=== PATIENT | female | born 1955 | race Native Hawaiian/Other Pacific Islander ===

== ENCOUNTER 2021-09-19 12:28 | Inpatient (IN) | payer OTHER ==
[~2021-09-19] VITALS: Ht 152.4 cm; Wt 68.5 kg
[2021-09-19] VITALS (8 sets, daily range): BP systolic 128–160; BP diastolic 55–78
[2021-09-19] MEDS ORDERED: SITA100T PO (12:42)
[2021-09-19] MEDS ORDERED: ASPI81TA31 PO (12:42)
[2021-09-19] MEDS ORDERED: NITR0.4T48 SL (12:42)
[2021-09-19] MEDS ORDERED: METO50TA16 PO (12:42)
[2021-09-19] MEDS ORDERED: PRAV20TA4 PO (12:42)
[2021-09-19] MEDS ORDERED: PANT40TA49 PO (12:42)
[2021-09-19] MEDS ORDERED: CHOL-9 PO (12:42)
[2021-09-19] MEDS ORDERED: LACT1CAP57 PO (12:42)
[2021-09-19] MEDS ORDERED: INSU100V39 SQ (12:42)
[2021-09-19] MEDS ORDERED: DILTIAZEM HCL 25 MG IV IV ONE ×2 (12:45→13:30)
[2021-09-19 12:46] LABS: HEMATOCRIT 30.3 % (31.2-41.9); MEAN CORPUSCULAR HEMOGLOBIN 28.3 uug (24.7-32.8); MEAN CORPUSCULAR VOLUME 87.8 fL (75.5-95.3); PLATELET COUNT (AUTO) 228 K/uL (179-408)
[2021-09-19] MEDS ORDERED: DILTIAZEM HCL 25 MG IV ONE (12:52)
[2021-09-19 12:57] LABS: CREATININE 6.5 mg/dL (0.6-1.3); POTASSIUM 4.4 mmol/L (3.5-5.1)
[2021-09-19 13:10] LABS: BILIRUBIN,DIRECT 0.1 mg/dL (0.0-0.2); BILIRUBIN,TOTAL 0.4 mg/dL (0.2-1.0); TOTAL PROTEIN, SERUM 7.3 g/dL (6.4-8.2)
[2021-09-19] MEDS ORDERED: INSULIN REGULAR, HUMAN 300 UNIT/3 ML VIAL SQ ONE (13:30)
[2021-09-19] MEDS ORDERED: INSULIN REGULAR, HUMAN 300 UNIT/3 ML VIAL ONE (13:49)
[2021-09-19] MEDS ORDERED: DILTIAZEM HCL IV 125 MG in IV DEXTROSE 5% 100 ML IV ONE (14:30)
--- NOTE | 2021-09-19 14:47 | NUR ---
cardizem drip started at 5mg/hr. 146/65, 110 a-fib
--- NOTE | 2021-09-19 14:48 | NUR ---
pt admitted to ccu, transfer pending on bed availability.
--- NOTE | 2021-09-19 15:36 | NUR ---
increased the cardizem drip to max of 15mg/hr per protocol. hr 89-104, 165/68
--- NOTE | 2021-09-19 16:32 | NUR ---
PT TRANSFERED TO CCU IN STABLE CONDITION, CARDIZEM AT 15MG/HR. PT REMAINED CALM AND COMFORTABLE THE WHOLE ER STAY.
--- NOTE | 2021-09-19 16:37 | NUR ---
Patient admitted to CCU from ER with admitting diagnosis of A. fib with RVR. Admitting physician notified. Patient alert/ oriented to person and place. Cooperative and follows commands. Vital signs within normal limits. Heart rate in the 70s, O2 saturation 99%, afebrile (98.9), blood pressure 131/72. No shortness of breath at the moment, no acute distress. Patient on room air. 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 Cardizem running at 5mg/h. IV site on right AC 20G, flushing, patent, and intact. Dialysis shunt on left upper arm. Noted with dark red/ purple skin discolorations on bilateral upper extremities. Will continue with plan of care. Awaiting admission orders.
--- NOTE | 2021-09-19 16:54 | NUR ---
Admitting physician Payam Beltran called and informed of pt's arrival. updated on pt's current condition. No new orders received.
[2021-09-19] MEDS ORDERED: DILTIAZEM HCL IV 125 MG in IV NORMAL SALINE 100 ML IV PRN ×2 (17:30→19:00)
[2021-09-19] MEDS ORDERED: ONDANSETRON 4 MG/2 ML VIAL IV PRN (19:00)
[2021-09-19] MEDS ORDERED: TEMAZEPAM 15 MG CAPSULE PO PRN (19:00)
[2021-09-19] MEDS ORDERED: NITROGLYCERIN 0.4 MG/TAB BOTTLE SL PRN (19:00)
[2021-09-19] MEDS ORDERED: MORPHINE SULFATE 2 MG/1 ML DISP.SYRIN IV PRN (19:00)
[2021-09-19] MEDS ORDERED: ACETAMINOPHEN 325 MG TABLET PO PRN (19:00)
[2021-09-19] MEDS: HEPARIN SODIUM,PORCINE 5,000 UNITS/ML VIAL SQ SCH (20:14)
[2021-09-19] MEDS ORDERED: METOPROLOL TARTRATE 5 MG/5 ML VIAL IVP PRN (20:15)
[2021-09-19] MEDS ORDERED: METOPROLOL TARTRATE 50 MG TABLET PO SCH (21:00)
--- NOTE | 2021-09-19 21:23 | NUR ---
Attending physician Payam Shen in the unit to examine pt. report given orders to continue with care plan received.
[2021-09-20] VITALS (15 sets, daily range): BP systolic 128–171; BP diastolic 50–89
[2021-09-20 05:38] LABS: HEMATOCRIT 28.3 % (31.2-41.9); MEAN CORPUSCULAR HEMOGLOBIN 28.4 uug (24.7-32.8); MEAN CORPUSCULAR VOLUME 87.7 fL (75.5-95.3); PLATELET COUNT (AUTO) 210 K/uL (179-408)
[2021-09-20 05:49] LABS: BILIRUBIN,TOTAL 0.3 mg/dL (0.2-1.0); MAGNESIUM 2.8 mg/dL (1.8-2.4); POTASSIUM 5.2 mmol/L (3.5-5.1); TOTAL PROTEIN, SERUM 6.1 g/dL (6.4-8.2)
[2021-09-20 06:19] LABS: THYROID STIMULATING HORMONE 1.466 mIU/mL (0.358-3.740)
--- NOTE | 2021-09-20 06:25 | NUR ---
Left pt. in bed resting comfortably, Hemodynamically stable and off cardizem drip, on sinus rhythm. SBP within desired limits. Neuro-flores AAOX3 cooperative GARY. RAC G20 patent and HL. GI-flores tolerating water, no n/v/d. Patient voiding via bed-corey. Safety measures implemented at all times. Will endorse for continuity of care plan.
[2021-09-20] MEDS ORDERED: PANTOPRAZOLE SODIUM 40 MG TABLET.DR PO SCH (07:00)
[2021-09-20] MEDS ORDERED: INSULIN REGULAR, HUMAN 300 UNITS/3 ML VIAL SQ PRN (07:45)
[2021-09-20] MEDS ORDERED: DEXTROSE 50% 50 ML DISP.SYRIN IV PRN (07:45)
[2021-09-20] MEDS ORDERED: INSULIN REGULAR, HUMAN 300 UNIT/3 ML VIAL SQ PRN (07:45)
[2021-09-20] MEDS ORDERED: ATORVASTATIN 10 MG TABLET PO SCH (09:00)
[2021-09-20] MEDS ORDERED: METOPROLOL TARTRATE 50 MG TABLET PO SCH ×2 (09:00)
[2021-09-20] MEDS ORDERED: CHOLECALCIFEROL 1,000 UNIT TABLET PO SCH (09:00)
[2021-09-20] MEDS ORDERED: ASPIRIN 81 MG TAB.CHEW PO SCH (09:00)
[2021-09-20] MEDS ORDERED: CULTURELLE CAPSULE PO SCH (09:00)
[2021-09-20] MEDS: HEPARIN SODIUM,PORCINE 5,000 UNITS/ML VIAL SQ SCH (09:04)
--- NOTE | 2021-09-20 09:31 | NUR ---
Noted to have a physician business card in belongings and asked permission to contact in order to get her cardiologists name so that Primary physician is able to gather further information. Dr. Zoran Saab noted that patient has a event host by the name of Jesse Victor [phone], and family service counselor of Dr. Boo Amin. [phone].
--- NOTE | 2021-09-20 09:45 | NUR ---
[facility]armacy noted to have new prescriptions for phos[place] by Dr. Junie Pitt. [phone]
[2021-09-20] MEDS ORDERED: CALC667T2 PO (09:46)
[2021-09-20] MEDS: AMLODIPINE 10 MG TABLET PO SCH ×2 (10:00→11:09)
[2021-09-20] MEDS ORDERED: APIX2.5T PO (11:28)
[2021-09-20] MEDS ORDERED: METO50TA16 PO (11:28)
[2021-09-20] MEDS ORDERED: AMLO10TA59 PO (11:28)
[2021-09-20] MEDS ORDERED: BLOOD SUGAR DIAGNOSTIC 1 EACH STRIP VI SCH (11:30)
--- NOTE | 2021-09-20 16:30 | NUR ---
Patient discharged to [facility] area after giving discharge instructions and IV removed. [facility] Patient ambulating without difficulty.
[2021-09-20] MEDS ORDERED: APIXABAN 2.5 MG TABLET PO SCH (21:00)
== END 2021-09-20 16:30 | disposition home or self-care (01) | DRG 201 ==
LOC: ER 12:28 → CCU 16:20
PROVIDERS: ADMIT Internal Medicine; ATTEND Internal Medicine
DX: I48.0 Paroxysmal atrial fibrillation (principal); I50.31 Acute diastolic (congestive) heart failure; N18.6 End stage renal disease; I31.3 Pericardial effusion (noninflammatory); E44.0 Moderate protein-calorie malnutrition; D63.8 Anemia in other chronic diseases classified elsewhere; N25.81 Secondary hyperparathyroidism of renal origin; E11.22 Type 2 diabetes mellitus with diabetic chronic kidney disease; I13.2 Hypertensive heart and chronic kidney disease with heart failure and with stage 5 chronic kidney disease, or end stage renal disease; D50.9 Iron deficiency anemia, unspecified; E11.65 Type 2 diabetes mellitus with hyperglycemia; Z99.2 Dependence on renal dialysis; E66.9 Obesity, unspecified; E78.5 Hyperlipidemia, unspecified; Z20.822 Contact with and (suspected) exposure to COVID-19; Z79.4 Long term (current) use of insulin; Z68.29 Body mass index [BMI] 29.0-29.9, adult; Z79.84 Long term (current) use of oral hypoglycemic drugs
CPT/HCPCS: 36415; 70030-TC; 71045; 83550; 83735; 84443; 85025; 85730; 93005; 93307; G0378; J1644; J1815; J3490; J7060